=== PATIENT | male | born 1965 | race Caucasian/White ===

== ENCOUNTER 2017-08-21 07:32 | Day surgery (SDC) | payer BC ==
[~2017-08-21 07:32] MED LIST: ACETAMINOPHEN 1,000 MG/100 ML BTL IV ONE; CEFAZOLIN 2 Gram 2 GM/50 ML BAG IVPB ONE
[2017-08-21] MEDS ORDERED: DEXAMETHASONE 4 MG/ML 1ML VIAL IVP ONE (07:33)
[2017-08-21] MEDS ORDERED: PROPOFOL 10 MG/ML VIAL IV ONE (07:33)
[2017-08-21] MEDS ORDERED: METHYLPREDNISOLONE 40MG/VIAL IM ONE (07:33)
[2017-08-21] MEDS ORDERED: DESFLURANE 240 ML BTL INH ONE (07:33)
[2017-08-21] MEDS ORDERED: HYDROCODONE/APAP 7.5/325MG TABLET PO ONE (07:33)
[2017-08-21] MEDS ORDERED: MIDAZOLAM HCL 2MG/2ML VIAL IV ONE (07:33)
[2017-08-21] MEDS ORDERED: FENTANYL PF 100MCG/2ML VIAL IV ONE (07:33)
[2017-08-21] MEDS ORDERED: MORPHINE SULFATE 5 MG/ML PFS IVP ONE (07:33)
[2017-08-21] MEDS ORDERED: BUPIVACAINE 0.25% MPF 30ML VIAL IVP ONE (07:33)
[2017-08-21] MEDS ORDERED: LIDOCAINE 2% MDV (20MG/ML) 20ML VIAL IV ONE (07:33)
[2017-08-21] MEDS ORDERED: KETOROLAC 30 MG/ML VIAL IVP ONE (07:33)
[2017-08-21] MEDS ORDERED: BUPIVACAINE 0.75% W/EPI MPF 30ML VIAL IVP ONE (07:33)
--- NOTE | 2017-08-21 17:04 | Operative Note ---
DATE: 08/21/17 PREOPERATIVE DIAGNOSIS: INTERNAL DERANGEMENT OF THE LEFT KNEE. POSTOPERATIVE DIAGNOSES: 1. COMPLEX SPLINT TEAR INVOLVING THE POSTERIOR HORN OF THE MEDIAL MENISCUS. 2. SYNOVITIS OF THE POUCH. PROCEDURE: 1. LEFT KNEE ARTHROSCOPY WITH PARTIAL MEDIAL MENISCECTOMY. 2. LEFT KNEE ARTHROSCOPY WITH LIMITED SYNOVECTOMY. STAFF SURGEON: MARIE ZACARIAS M.D. ANESTHESIA: GENERAL. PREPARATION: CHLORAPREP. INDIVIDUAL CONSIDERATIONS: NONE. PROCEDURE: The patient was taken to the Operating Room and placed supine on the operating table. He had a successful induction of a general anesthetic. His left lower extremity was prepped and draped in the usual fashion. The patient had superolateral inflow cannula placed. The skin was infiltrated with 0.5% Marcaine with Epinephrine prior. The knee was then inflated with normal saline. An inferior medial and inferior lateral portal was made in a similar fashion. The arthroscope was introduced through the inferior lateral portal up to the pouch. The patellofemoral joint was essentially normal except for synovitis in the pouch and a bit of fat pad impingement, which was all debrided. The synovectomy of the pouch was done with a shaver. The gutters looked okay. Medially, he had an obvious displaced split tear involving the posterior horn of the medial meniscus; basically, most of the posterior horn was debrided out with basket forceps and a shaver along with hook scissors to get a large posterolateral piece. The articular cartilage looked good. In the notch, the cruciates are normal and lateral compartment structures are basically normal. The knee was then irrigated out with saline to remove loose floating debris. Portals were closed with trinidad and 20 mL of 0.25% plain Marcaine along with 4 mg of Morphine and 40 mg DepoMedrol were injected into the knee and a sterile Bulkee compressive dressing was applied. The patient tolerated the procedure well. Needle and sponge counts were correct. Estimated blood loss was minimal. He was taken back to Recovery in good condition. There were no complications. cc: Dr. Zachary Olivo JOB NUMBER: [id number] MTDD
== END 2017-08-21 11:30 | disposition home or self-care (01) ==
LOC: SUR 07:32
PROVIDERS: ATTEND Orthopaedic Surgery
DX: M23.222 Derangement of posterior horn of medial meniscus due to old tear or injury, left knee (principal); M65.9 Synovitis and tenosynovitis, unspecified
CPT/HCPCS: 29881; 01400; J1885; J3010; J0690; J2270; J3490; J1030